=== PATIENT | male | born 1960 | race Hispanic/Latino ===

== ENCOUNTER 2017-09-19 09:04 | Day surgery (SDC) | payer MEDICARE ==
[2017-09-19 09:47] VITALS: BMI 24.0
[2017-09-19 10:04] VITALS: O2SAT 100
[2017-09-19] MEDS ORDERED: Lactated Ringer's 1,000 ML IV ONE (10:40)
[2017-09-19] MEDS ORDERED: Propofol 10 mg/ml Inj (20 ML) ONE ×2 (10:43)
[2017-09-19 12:22] VITALS: BP 104/64; PULSE 66; RESP 18; TEMP 97
== END 2017-09-19 12:19 | disposition home or self-care (01) ==
LOC: C.ENDO 09:04
PROVIDERS: ATTEND Internal Medicine
DX: Z12.11 Encounter for screening for malignant neoplasm of colon (principal); Z80.0 Family history of malignant neoplasm of digestive organs; K63.5 Polyp of colon; K64.8 Other hemorrhoids